=== PATIENT | male | born 1995 | race Caucasian/White ===

== ENCOUNTER 2016-03-29 02:58 | Emergency (ER) | payer OTHER ==
[~2016-03-29] VITALS: Ht 188 cm; Wt 86.0 kg
[2016-03-29 07:26] VITALS: BP 118/87
== END 2016-03-29 07:26 | disposition home or self-care (01) ==
LOC: EME 02:58
DX: S60.221A Contusion of right hand, initial encounter (principal); S16.1XXA Strain of muscle, fascia and tendon at neck level, initial encounter; S80.212A Abrasion, left knee, initial encounter; Y04.0XXA Assault by unarmed brawl or fight, initial encounter
CPT/HCPCS: 72125; 73130; 99281; 99283

== ENCOUNTER 2016-10-04 02:04 | Emergency (ER) | payer OTHER ==
[~2016-10-04] VITALS: Ht 188 cm; Wt 89.4 kg
[2016-10-04 03:01] LABS: ADD MIUA? YES; BILIRUBIN NEGATIVE; BLOOD LARGE; GLUCOSE (STRIP) NEGATIVE; KETONES NEGATIVE; LEUKOCYTES LARGE; NITRITE NEGATIVE; PROTEIN (STRIP) 100; SPECIFIC GRAVITY 1.009 (1.000-1.030); UROBILINOGEN 0.2 MG/DL (0.2-1.0)
[2016-10-04 03:02] LABS: COLOR RED ((YELLOW))
[2016-10-04 03:19] LABS: MCH 29.4 PG (29.0-34.0); MCHC 34.5 G/DL (30.0-36.0); MCV 85.1 FL (86-99); MEAN PLAT.VOLUME 10.3 uM^3 (9.0-12.4); PLATELET COUNT 194 K/uL (156-360); RBC DIS.WIDTH-CV 11.6 % (11.8-14.6); RBC DIS.WIDTH-SD 35.4 % (39-53); RED BLOOD COUNT 5.17 M/uL (4.00-5.50); WHITE BLOOD COUNT 7.8 K/uL (4.1-10.2)
[2016-10-04 03:24] LABS: RED BLOOD CELLS TNTC /HPF (0-5); UCUL ADDED? YES; WHITE BLOOD CELLS TNTC /HPF (0-5)
[2016-10-04 03:30] LABS: CHLORIDE 105 mEq/L (99-109); POTASSIUM 3.9 mEq/L (3.7-5.4); SODIUM 141 mEq/L (136-147)
[2016-10-04 03:32] LABS: GLUCOSE 109 mg/dL (70-99)
[2016-10-04 03:33] LABS: ANION GAP 10 MEQ/L (2-14)
[2016-10-04 03:36] LABS: GFR ESTIMATE (CALCULATED) > 59 mL/min/; UREA NITROGEN (BUN) 16 mg/dL (9-23)
[2016-10-04] MEDS ORDERED: CIPRO500 MG PO (04:37)
[2016-10-04 04:53] VITALS: BP 135/67
[2016-10-05 12:42] LABS: CHLAMYDIA TRACHOMATIS NEGATIVE; NEISSERIA GONORRHOEAE NEGATIVE
== END 2016-10-04 04:54 | disposition home or self-care (01) ==
LOC: EME 02:04
PROVIDERS: Physician Assistant
DX: N30.01 Acute cystitis with hematuria (principal)
CPT/HCPCS: 74176; 80048; 81003; 85027; 87086; 87491; 87591; 99281; 99284